=== PATIENT | female | born 1995 | race Caucasian/White ===

== ENCOUNTER 2016-07-22 15:53 | Emergency (ER) | payer MEDICAID, OTHER ==
[~2016-07-22] VITALS: Ht 157.5 cm; Wt 56.0 kg
[~2016-07-22 15:53] MED LIST: CLIN-73 PO; IBUP-1542 PO; PRED50TA PO
[2016-07-22 16:00] VITALS: Ht 157.5 cm; Wt 56.0 kg
[2016-07-22] MEDS ORDERED: DIPHTH/TET/ACEL PERTUSS (ADULT) 0.5 ML VIAL IM* ONE (16:30)
[2016-07-22] MEDS ORDERED: IBUPROFEN 600 MG TAB PO ONE (16:30)
--- NOTE | 2016-07-22 17:09 | RADRPT ---
PROCEDURE: XR Hand. CLINICAL INDICATION: Right hand pain. Laceration medially. TECHNIQUE: Three views. Frontal, lateral, and oblique images of the right hand were obtained. COMPARISON: No prior studies are available for comparison. FINDINGS: There is no fracture or dislocation. The soft tissues are normal. Articular surfaces are intact. There is no lytic or blastic lesion. There is no radiopaque foreign body. IMPRESSION: 1. Unremarkable images of the right hand. RPTAT: QQ .John Villarreal MD, Date Time Electronically viewed and signed by .John Villarreal MD, on 07/22/2016 17:09 .R/
[2016-07-22] MEDS ORDERED: LIDOCAINE 1% (MDV) 20 ML INJ SC ONE (17:30)
[2016-07-22] MEDS ORDERED: IBUP-1542 PO (17:41)
--- NOTE | 2016-07-22 17:43 | ERD ---
ER Documentation Chief Complaint Date/Time DATE: 07/22/16 TIME: 17:42 Chief Complaint LEFT HAND LAC HPI This 20-year-old female presents with right hand laceration after punching some dishes. She denies any restricted range of motion or weakness. The laceration is on the dorsum of her fifth metacarpal phalangeal joint. Her tetanus is not up-to-date ROS All systems reviewed and are negative except as per history of present illness. Medications Home Meds Active Scripts Ibuprofen* (Motrin*) 600 Mg Tab, 600 MG PO Q6, #15 TAB Prov:SOFYA HUMPHRIES MD 07/22/16 Ibuprofen* (Motrin*) 600 Mg Tab, 600 MG PO Q6H Y for PAIN AND OR ELEVATED TEMP, #30 TAB Prov:RANGEL BYRNE NP 11/13/15 Prednisone* (Prednisone*) 50 Mg Tablet, 50 MG PO DAILY, #5 TAB Prov:RANGEL BYRNE NP 11/13/15 Clindamycin Hcl* (Clindamycin Hcl*) 300 Mg Capsule, 300 MG PO TID for 10 Days, CAP Prov:RANGEL BYRNE NP 11/13/15 Allergies Allergies: Coded Allergies: No Known Drug Allergies (Verified Allergy, Unknown, 11/13/15) PMhx/Soc History of Surgery: No Anesthesia Reaction: No Hx Neurological Disorder: No Hx Respiratory Disorders: No Hx Cardiac Disorders: No Hx Psychiatric Problems: No Hx Miscellaneous Medical Probl: No Hx Alcohol Use: No Hx Substance Use: No Hx Tobacco Use: No Physical Exam Vitals Vital Signs Date Time Temp Pulse Resp B/P Pulse Ox O2 Delivery O2 Flow Rate FiO2 07/22/16 16:00 98.1 99 18 128/83 99 Physical Exam Const: [] Alert, [id number] per Head: Atraumatic Eyes: Normal Conjunctiva ENT: Normal External Ears, Nose and Mouth. Neck: Full range of motion..~ No meningismus. Resp: Clear to auscultation bilaterally Cardio: Regular rate and rhythm, no murmurs Abd: Soft, non tender, non distended. Normal bowel sounds Skin: No petechiae or rashes Back: No midline or flank tenderness Ext: No cyanosis, or edema. There is a 2.75 cm laceration on the dorsum of the right fifth metacarpal phalangeal joint. There is no deformities or physical foreign body. There is no appreciable restricted range of motion weakness. Neur: Awake and alert Psych: Normal Mood and Affect Results 24 hrs Current Medications Medications (Trade) Dose Ordered Sig/Bro Route PRN Reason Start Time Stop Time Status Last Admin Dose Admin Ibuprofen (Motrin) 600 mg ONCE ONCE PO 07/22/16 16:30 07/22/16 16:31 DC 07/22/16 16:33 Diphtheria/ Tetanus/Acell Pertussis (Adacel) 0.5 ml ONCE ONCE IM* 07/22/16 16:30 07/22/16 16:31 DC 07/22/16 16:34 Lidocaine (Xylocaine 1% (Mdv) 20 ml) 20 ml ONCE ONCE SC 07/22/16 17:30 07/22/16 17:31 DC Procedures/MDM X-ray right hand 3V interpreted by me: Scaphoid: Normal Bones: No fracture Joints: No dislocation Foreign body: None impression-normal right hand next Right hand laceration was copiously irrigated with normal saline. 3 cc of lidocaine was used for local infiltration. 5 4-0 nylon sutures were used to reapproximate the wound and the patient tolerated procedure well and the wound was dressed. Patient presents with a right hand laceration without evidence of foreign body, fracture, tendon or neurologic deficit. She will discharged home with prescription ibuprofen, instructions for wound check in 2 days and suture removal in 10-14 days. Patient was placed in the right fifth digit extension splint. Splint Assessment: Neurovascularly intact post splint placement with good fit. Departure Diagnosis: Primary Impression: Hand contusion Encounter type: initial encounter Laterality: right Qualified Code: S60.221A - Contusion of right hand, initial encounter Additional Impression: Laceration Condition: Stable Patient Instructions: Laceration, Hand Additional Instructions: X-ray read as normal. Wound check in 2 days and suture removal in 10-14 days. Recheck sooner for redness, fevers, new symptoms SOFYA HUMPHRIES MD Jul 22, 2016 17:43
== END 2016-07-22 18:25 | disposition home or self-care (01) ==
LOC: FTE 15:53
DX: S61.411A Laceration without foreign body of right hand, initial encounter (principal); W22.8XXA Striking against or struck by other objects, initial encounter; Y92.9 Unspecified place or not applicable; Z23 Encounter for immunization
CPT/HCPCS: 12002; 73130; 90471; 90715; Z7502; Z7610

== ENCOUNTER 2018-07-03 23:48 | Emergency (ER) | payer OTHER ==
[~2018-07-03] VITALS: Ht 165.1 cm; Wt 68.2 kg
[~2018-07-03 23:48] MED LIST changes: -CLIN-73 PO; +CLIN300C10 PO
[2018-07-03 23:54] VITALS: Ht 165.1 cm; Wt 68.2 kg
[2018-07-04] MEDS ORDERED: LORAZEPAM 2 MG INJ IM ONE
--- NOTE | 2018-07-04 01:28 | ERD ---
ER Documentation Chief Complaint Chief Complaint KAEL VIVEROS from home,hyperventilating,wants to scratch self & HPI 22-year-old female coming into the emergency room via EMS because of severe anxiety attack. The patient states that she has been having very frequent anxiety attacks and panic attacks. Tonight she had a severe one and was having trouble talking because of it. He is having cramping and spasms of her bilateral hands. She states that she wants to scratch herself and wants to . She denies any drugs or alcohol tonight. The history is somewhat limited because of patient's poor cooperation. ROS All systems reviewed and are negative except as per history of present illness. Medications Home Meds Active Scripts Ibuprofen* (Motrin*) 600 Mg Tab, 600 MG PO Q6, #15 TAB Prov:SOFYA HUMPHRIES MD 07/22/16 Ibuprofen* (Motrin*) 600 Mg Tab, 600 MG PO Q6H PRN for PAIN AND OR ELEVATED TEMP, #30 TAB Prov:RANGEL BYRNE NP 11/13/15 Prednisone* (Prednisone*) 50 Mg Tablet, 50 MG PO DAILY, #5 TAB Prov:RANGEL BYRNE NP 11/13/15 Clindamycin Hcl* (Clindamycin Hcl*) 300 Mg Capsule, 300 MG PO TID for 10 Days, CAP Prov:RANGEL BYRNE NP 11/13/15 Allergies Allergies: Coded Allergies: No Known Drug Allergies (Verified Allergy, Unknown, 11/13/15) PMhx/Soc History of Surgery: No Anesthesia Reaction: No Hx Neurological Disorder: No Hx Respiratory Disorders: No Hx Cardiac Disorders: No Hx Psychiatric Problems: No Hx Miscellaneous Medical Probl: No Hx Alcohol Use: No Hx Substance Use: No Hx Tobacco Use: No Smoking Status: Never smoker FmHx Family History: No diabetes Physical Exam Vitals Vital Signs Date Temp Pulse Resp B/P (MAP) Pulse Ox O2 O2 Flow FiO2 Time Delivery Rate 07/03/18 99.0 97 18 130/83 100 23:54 (99) Physical Exam General: Hyperventilating, histrionic Head: Normocephalic, atraumatic. Eyes: Pupils equally reactive, EOM intact ENT: Moist mucous membranes Neck: Supple, no lymphadenopathy Respiratory: Lungs clear bilaterally, no distress Cardiovascular: RRR, no murmurs, rubs, or gallops Abdominal: Soft, non-tender, non-distended, no peritoneal signs : Deferred MSK: No edema, no unilateral swelling, 5/5 strength Neurologic: Moving all extremities, poorly cooperative Skin: No rash Psych: extreme anxiety, suicidal ideation, reported plan Result Diagram: 07/04/18 0043 Results 24 hrs Laboratory Tests Test 07/04/18 00:43 White Blood Count 7.6 10^3/ul Red Blood Count 4.12 10^6/ul Hemoglobin 12.7 g/dl Hematocrit 38.1 % Mean Corpuscular Volume 92.5 fl Mean Corpuscular Hemoglobin 30.8 pg Mean Corpuscular Hemoglobin Concent 33.3 g/dl Red Cell Distribution Width 11.9 % Platelet Count 318 10^3/UL Mean Platelet Volume 9.7 fl Immature Granulocytes % 0.100 % Neutrophils % 60.9 % Lymphocytes % 26.9 % Monocytes % 10.4 % Eosinophils % 0.9 % Basophils % 0.8 % Nucleated Red Blood Cells % 0.0 /100WBC Immature Granulocytes # 0.010 10^3/ul Neutrophils # 4.6 10^3/ul Lymphocytes # 2.1 10^3/ul Monocytes # 0.8 10^3/ul Eosinophils # 0.1 10^3/ul Basophils # 0.1 10^3/ul Nucleated Red Blood Cells # 0.0 10^3/ul Serum HCG, Qualitative NEGATIVE Current Medications Medications Dose Sig/Bro Start Time Status Last (Trade) Ordered Route PRN Stop Time Admin Dose Reason Admin Lorazepam 1 mg ONCE ONCE 07/04/18 DC 07/04/18 (Ativan) IM 00:00 00:22 07/04/18 00:01 Procedures/MDM EKG/DIAGNOSTIC IMAGING: None Required LAB INTERPRETATION: No acute process MEDICAL DECISION MAKING: The patient's presentation is consistent with underlying psychiatric illness and likely exacerbation of this illness and/or psychosis. I have a much lower clinical concern for delirium or acute organic pathology such as toxicologic, metabolic, ischemic, intracranial hemorrhage, infectious process. However, we must rule this out prior to relying a diagnosis of underlying psychiatric illness. The patient's workup will include medical screening examination and appropriate laboratory testing. If the patient's medical examination does not reveal acute organic pathology the patient will be medically cleared for psychiatric evaluation. ER COURSE: * Ativan provided * The patient's evaluation does not suggest an acute organic pathology. At this time I believe the patient's presentation is very consistent with underlying psychiatric illness. The patient is medically cleared for psychiatric evaluation. CONSULTATION: Psychiatric consultation: Telemetry medicine psychiatry has been consulted on this case to evaluate the patient for possible acute psychiatric illness that would require inpatient hospitalization. DISPOSITION PLAN: Pending psychiatric evaluation Departure Diagnosis: Primary Impression: Anxiety attack Additional Impression: Depression with suicidal ideation Condition: Stable KONRAD ENGEL MD Jul 04, 2018 01:28
[2018-07-04 02:56] VITALS: BP 107/67; PULSE 88; RESP 16
--- NOTE | 2018-07-04 03:02 | PSY ---
Date/Time of Note Date/Time of Note DATE: 07/04/18 TIME: 02:59 Psychiatric Subjective Eval Consent Pt consented to telemedicine: Yes Subjective Evaluation Patient location: emergency Chief Complaint: RODNEYA RAAda from home,hyperventilating,wants to scratch self & Medical history Problems Medical Problems: (1) Anxiety attack Status: Acute (2) Depression with suicidal ideation Status: Acute (3) Hand contusion Status: Acute (4) Laceration Status: Acute (5) Strep throat Status: Acute Allergies: Coded Allergies: No Known Drug Allergies (Verified Allergy, Unknown, 11/13/15) Psychiatric Objective Eval Mental Status Examination: Laboratory Results Laboratory Tests Test 07/04/18 00:43 07/04/18 02:11 White Blood Count 7.6 10^3/ul Red Blood Count 4.12 10^6/ul Hemoglobin 12.7 g/dl Hematocrit 38.1 % Mean Corpuscular Volume 92.5 fl Mean Corpuscular Hemoglobin 30.8 pg Mean Corpuscular Hemoglobin Concent 33.3 g/dl Red Cell Distribution Width 11.9 % Platelet Count 318 10^3/UL Mean Platelet Volume 9.7 fl Immature Granulocytes % 0.100 % Neutrophils % 60.9 % Lymphocytes % 26.9 % Monocytes % 10.4 % Eosinophils % 0.9 % Basophils % 0.8 % Nucleated Red Blood Cells % 0.0 /100WBC Immature Granulocytes # 0.010 10^3/ul Neutrophils # 4.6 10^3/ul Lymphocytes # 2.1 10^3/ul Monocytes # 0.8 10^3/ul Eosinophils # 0.1 10^3/ul Basophils # 0.1 10^3/ul Nucleated Red Blood Cells # 0.0 10^3/ul Sodium Level 144 mmol/L Potassium Level 3.7 mmol/L Chloride Level 104 mmol/L Carbon Dioxide Level 25 mmol/L Anion Gap 15 Blood Urea Nitrogen 8 mg/dl Creatinine 0.53 mg/dl Est Glomerular Filtrat Rate mL/min > 60 mL/min Glucose Level 104 mg/dl Calcium Level 9.6 mg/dl Total Bilirubin 0.2 mg/dl Direct Bilirubin 0.00 mg/dl Indirect Bilirubin 0.2 mg/dl Aspartate Amino Transf (AST/SGOT) 26 IU/L Alanine Aminotransferase (ALT/SGPT) 17 IU/L Alkaline Phosphatase 74 IU/L Total Protein 8.2 g/dl Albumin 4.4 g/dl Globulin 3.80 g/dl Albumin/Globulin Ratio 1.15 Serum HCG, Qualitative NEGATIVE Ethyl Alcohol Level < 10.0 mg/dl Urine Opiates Screen Negative Urine Barbiturates Negative Urine Amphetamines Screen Negative Urine Benzodiazepines Screen Negative Urine Cocaine Screen Negative Urine Cannabinoids Negative Assessment and Plan Recommendation/Plan Discharge Disposition: Community (home) Legal Status: Voluntary Assessment Additional comments: IDENTIFYING INFORMATION: 22 year old Female patient who is currently located at the hospital and for whom psychiatric consultation was requested. SOURCES OF INFORMATION: The patient who appears to be reliable and the medical records; the nursing staff. Mom, Amy Kemp, was called at [phone] at 3:08 am. She appears to be reliable. CHIEF COMPLAINT: "an anxiety attack". HISTORY OF PRESENT ILLNESS: The patient was interviewed via telemedicine in the presence of and under the supervision of nursing staff of the hospital. The consent to conducting this interview via telemedicine was obtained by the nursing staff at the hospital. RADHA Ibarra reports that the patient presented with anxiety and stated that she wanted to scratch herself to possibly. The patient reports having a panic attack. Admits to getting panic attacks at times, with intense anxiety, chest pressure, pain, paresthesias. Admits to agoraphobia at times. Admits to having been somewhat depressed lately, The patient denies having SI. Admits to thinking of scratching herself transiently to release the stress. She reports that what she stated was misunderstood. Denies having AH, VH, delusions, anhedonia, HI, low appetite. The patient denies using alcohol heavily or regularly. The patient denies using any other substances. In terms of past psychiatric history, the patient reports having a history of no past psychiatric hospitalizations, contacts. The patient reports having a history of no past suicide attempt. Past medication trials: none. The patient denies ever having a history of AH, delusions, manic or hypomanic episodes. The patient's mother reports that she has no imminent safety concerns regarding her daughter, denies that the patient actually had any suicidal thoughts, she reports that she agrees that what she stated was misinterpreted because she was overwhelmed and was having a panic attack. PAST MEDICAL HISTORY: asthma, anemia. CURRENT MEDICATIONS: none. ALLERGIES TO MEDICATIONS: NKDA. LABORATORY TESTS: CBC wnl, CMP wnl, UDS -, no alcohol detected. SOCIAL HISTORY: lives with parents, single, plans to move out and live alone, no kids, not employed, not on SSI, is looking for a job, no access to firearms. REVIEW OF SYSTEMS: Constitutional (e.g., fever, weight loss): negative; Eyes, Ears, Nose, Mouth, Throat: negative; Cardiovascular: negative; Respiratory: negative; Gastrointestinal: negative; Genitourinary: negative; Musculoskeletal: negative; Integumentary (skin and/or breast): negative; Neurological: negative; Psychiatric: as per HPI; Endocrine: negative; Hematologic/Lymphatic: negative; Allergic/Immunologic: negative. MENTAL STATUS EXAMINATION: General Appearance and Behavior: Calm, cooperative with the interview, pleasant with the current interviewer, makes fair eye contact, fairly groomed, no abnormal movements noted Speech: Regular rate, regular rhythm, normal latency, normal volume, Somewhat decreased amount. Flow of thought: sequential, logical, goal-directed Content of thought: no auditory hallucinations, no visual hallucinations, no delusions, negative for suicidal ideation; no homicidal ideation, Mood: "anxiety" Affect: dysthymic, reactive, Attention: normal based on the interview, Insight: fair, Judgment: fair, Memory: normal based on the interview, Sensorium: alert and oriented to person, place and date. ASSESSMENT: The patient's presentation and history are consistent with the diagnosis of panic disorder with agoraphobia, major depressive disorder. The patient presents with an exacerbation of anxiety in the context of not receiving treatment, psychosocial stressors. No evidence of psychosis, jose g, hypomania on exam. The patient does not appear to be in a severe major depressive episode at this time. She does have some depressive symptoms on exam. The patient has never received any psychiatric care whatsoever. PLAN: - Medication management: Would start Celexa 20 mg by mouth daily; please do not dispense prescription exceeding 14 days; please instruct patient to obtain refill by her future psychiatrist or her primary care provider before she runs out. Informed consent obtained. - Labs: No other laboratory tests are needed at this time. Please consider recommending that the patient check a TSH as an outpatient with her primary care provider. - Psychotherapy: Provided supportive psychotherapy and psychoeducation. - Disposition: The patient is appropriate for the outpatient level of care at this time from a psychiatric perspective. The patient is not an imminent danger to self or others. The patient is motivated for outpatient treatment. The patient agrees to be compliant with outpatient follow-up appointments and pharmacotherapy as indicated. Would recommend that the patient follows up with a psychiatrist. Res ources for outpatient follow-up will be provided by the hospital staff. The patient's risk for completed suicide is high in comparison to the general population. Risk factors include age, anxiety disorder, mood disorder. Protective factors include race, gender, absence of schizophrenia, bipolar disorder, personality disorder, no access to firearms, no history of suicide attempts, no major chronic medical problems. The patient's risk for completed suicide cannot be modified more effectively with inpatient admission at this time. The patient is not an imminent danger to self or others at this time and does not meet the legal criteria for involuntary admission. Risks, benefits, alternatives were discussed and the patient provided informed consent to proceed with the above plan. The patient's mother feels comfortable with above plan. She does not feel that the patient needs to be hospitalized, and will assist the patient with outpatient appointments. Discussed about the above plan with Dr. Edmond. RAFAEL MC MD Jul 04, 2018 03:02
[2018-07-04] MEDS ORDERED: CITA20TA11 PO (03:13)
== END 2018-07-04 03:59 | disposition home or self-care (01) ==
LOC: E/R 23:48
DX: F41.9 Anxiety disorder, unspecified (principal); R45.851 Suicidal ideations; F32.9 Major depressive disorder, single episode, unspecified
CPT/HCPCS: 80053; 80307; 84703; 85025; J2060; 96372